=== PATIENT | male | born 1990 | race Hispanic/Latino ===

== ENCOUNTER 2020-11-03 10:23 | Emergency (ER) | payer SELFPAY ==
--- OUTSIDE RECORDS SUMMARY | 2020-11-03 10:26 | XMS REPORT | Continuity of Care Document ---
:1990 Author Organization [facility] t Address [address] [place] [address] Care Team Providers Name Role Phone Quin Bruce DOalex Vega Attending Clinician Payers Payer Name Policy Type Policy Number Effective Date Expiration Date S ource Problems This patient has no known problems. Allergies, Adverse Reactions, Alerts Allergy Allergy Status Severity Reaction(s) Onset Inactive Treating Comm ents Source Name Type Date Date Clinician No Known DA Active U 2019-0 [facility] All[facility]ie 7-30 Clear s 00:00: [place] 00 [facility] No Known DA Active U 2017- [facility] Allergie 2-24 Clear s 00:00: [place] 00 [facility] No Known DA Active U 2015-0 [facility] Allergie 4-10 Clear s 00:00: [place] 00 [facility] Medications This patient has no known medications. Procedures This patient has no known procedures. Encounters Start End Encounter Admission Attending Care Care Encounter Source Date/Time Date/Time Type Type Clinicians Facility Department ID 2019-10-09 2019-10-09 Emergency Bruce [facility] [id number] 21:14:06 22:36:00 [facility] [id number] [place] [id number] Butler [id number] [place] [address] ([facility]) 2019-03-28 2019-03-28 Emergency E [facility] [id number] [facility] 00:56:00 00:56:00 2019-01-29 2019-01-29 Emergency E [facility] [id number] [facility]BL 21:19:00 21:19:00 2019-01-20 2019-01-20 Emergency E [facility]SE [facility]SE [id number] MH 22:12:00 22:12:00 [facility] 2018-12-24 2018-12-24 Emergency E [facility]BL [facility]BL [id number] MHBL 23:23:00 23:23:00 Results This patient has no known results.
[2020-11-03] MEDS ORDERED: ONDANSETRON 4 MG/2 ML VIAL ONE (11:06)
[2020-11-03] MEDS ORDERED: NA CHLORIDE 0.9% 1,000 ML ONE (11:06)
[2020-11-03 11:10] LABS: Absolute Lymphocytes (CBC) 1.9 K/uL (0.7-4.9); Basophils % 0.8 % (0-1.3); Hematocrit 45.8 % (39.6-49.0); Lymphocytes % 22.9 % (15.3-44.8); MPV 9.1 fL (7.6-11.3); RBC Red Blood Cell Count 4.81 M/uL (4.33-5.43)
[2020-11-03] MEDS ORDERED: KETOROLAC 30 MG/ML INJ ONE (11:12)
[2020-11-03] MEDS ORDERED: MORPHINE 4 MG/ML SYR ONE (12:51)
[2020-11-03 12:52] LABS: ALT/SGPT 39 U/L (12-78); AST/SGOT 25 U/L (15-37); Albumin 3.3 g/dL (3.4-5.0); BUN Blood Urea Nitrogen 11 mg/dL (7-18); Bicarbonate 28 mmol/L (21-32); Bilirubin Direct < 0.1 mg/dL (0-0.2); Bilirubin Total 0.4 mg/dL (0.2-1.0); Glucose Level 150 mg/dL (74-106); Lipase 227 U/L (73-393); Protein, Total 7.4 g/dL (6.4-8.2); Sodium Level 142 mmol/L (136-145)
--- NOTE | 2020-11-03 13:50 | RAD REPORT ---
EXAM DESCRIPTION: CT - Abdomen Pelvis W Contrast - 11/03/2020 1:22 pm CLINICAL HISTORY: ABD PAIN COMPARISON: No comparisons TECHNIQUE: Biphasic, helical CT imaging of the abdomen and pelvis was performed following 100 ml non -ionic IV contrast. No oral contrast administered. All CT scans are performed using dose optimization technique as appropriate and may include automated exposure control or mA/KV adjustment according to patient size. FINDINGS: No suspicious findings in the lung bases. The liver, spleen, and pancreas show no suspicious findings. Gallbladder and biliary tree are also wi thout suspicious finding. Symmetric renal function is seen with no hydronephrosis or suspicious renal mass. No pyelonephritis o r acute parenchymal process. No bladder abnormalities. No adrenal abnormalities. Patel of the proximal stomach are prominent probably due to limited lumen content. Wall thickening of the duodenum and jejunum present with several loops of jejunum dilated. Distal jejunum and ileum are prominent but not dilated. Moderate stool volume fills the colon. There is no colon wall thickening or edema. Small bowel obstruction is not suspected. No free air, free fluid or inflammatory stranding . No hernia, mass or bulky lymphadenopathy. No suspicious bony findings. IMPRESSION: Circumferential wall thickening involves the duodenum and jejunum with several loops of jejunum dilated. Overall bowel pattern is prominent. Bowel obstruction is not suspected. This is most likely gastroenteritis.
--- NOTE | 2020-11-03 14:03 | ER ---
Nurse's Notes [facility] Name: Hector Cho Jr Age: 30 yrs Sex: Male : 1990 Arrival Date: 11/03/2020 Time: 10:31 Bed 7 Private MD: Diagnosis: Nausea with vomiting, unspecified;Other viral enteritis Presentation: 11/03 10:38 Chief complaint: Patient states: "I've been getting this rash all over me for the past ss month and then I started having belly pain and vomited like acid stuff and rumor has it the person I have been messing around with may have HIV.". Coronavirus screen: Client denies travel out of the [place] in the last 14 days. Ebola Screen: Patient denies exposure to infectious person. Patient denies travel to an Ebola-affected area in the 21 days before illness onset. Initial Sepsis Screen: Does the patient meet any 2 criteria? No. Patient's initial sepsis screen is negative. Does the patient have a suspected source of infection? No. Patient's initial sepsis screen is negative. Risk Assessment: Do you want to hurt yourself or someone else? Patient reports no desire to harm self or others. Onset of symptoms was September 2020. 10:38 Method Of Arrival: Ambulatory ss 10:38 Acuity: IRMA 3 ss Historical: - Allergies: 10:41 No Known Allergies; ss - PMHx: 10:41 PUD; ss - PSHx: 10:41 left wrist; ankle; ss - Immunization history:: Adult Immunizations up to date. - Social history:: Smoking status: Patient denies any tobacco usage or history of. Screenin:42 Abuse screen: Denies threats or abuse. Denies injuries from another. Nutritional sv screening: No deficits noted. Tuberculosis screening: No symptoms or risk factors identified. Fall Risk None identified. Assessment: 10:40 General: Appears in no apparent distress. Behavior is calm, cooperative. Pain: Pain hb currently is 8 out of 10 on a pain scale. Neuro: Level of Consciousness is awake, alert, obeys commands, Oriented to person, place, time, situation. Cardiovascular: Capillary refill < 3 seconds Patient's skin is warm and dry. Respiratory: Respiratory effort is even, unlabored, Respiratory pattern is regular, symmetrical. GI: Reports lower abdominal pain, upper abdominal pain, diarrhea, nausea, vomiting. : No signs and/or symptoms were reported regarding the genitourinary system. EENT: No signs and/or symptoms were reported regarding the EENT system. Derm: Skin is pink, warm \\T\\ dry. Musculoskeletal: No signs and/or symptoms reported regarding the musculoskeletal system. 10:50 Reassessment: Pt c/o abd pain, informed Dr Lal informed. Stated he would order some sv medication. 12:36 Reassessment: Pt c/o abdominal pain 05/28, Dr. Lal notified, VO received for hb Morphine 4mg IVP now, medicated as ordered. 13:15 Reassessment: Patient appears in no apparent distress at this time. Patient and/or hb family updated on plan of care and expected duration. Pain level reassessed. Patient is alert, oriented x 3, equal unlabored respirations, skin warm/dry/pink. 14:15 Reassessment: Patient appears in no apparent distress at this time. Patient and/or sv family updated on plan of care and expected duration. Pain level reassessed. Patient is alert, oriented x 3, equal unlabored respirations, skin warm/dry/pink. Vital Signs: 10:38 Pulse 72; Resp 15; Pulse Ox 99% on R/A; Weight 65.77 kg; Height 5 ft. 7 in. (170.18 ss cm); Pain 8/10; 10:42 BP 117 / 62; ss 11:38 BP 115 / 73; Pulse 62; Resp 16; Pulse Ox 99% ; sv 12:33 BP 129 / 77; Pulse 62; Resp 18; Pulse Ox 100% ; sv 13:14 BP 119 / 76; Pulse 58; Resp 16; Pulse Ox 98% ; sv 13:55 BP 114 / 78; Pulse 59; Resp 17; Pulse Ox 100% ; sv 10:38 Body Mass Index 22.71 (65.77 kg, 170.18 cm) ED Course: 10:31 Patient arrived in ED. am2 10:34 Doretha Pisano, [place] is Primary Nurse. sv 10:38 Jose Lal MD is Attending Physician. tw4 10:40 Triage completed. ss 10:41 Arm band placed on right wrist. ss 10:42 ED physician to see patient. sv 10:42 Patient has correct armband on for positive identification. Placed in gown. Bed in low sv position. Call light in reach. Pulse ox on. NIBP on. Door closed. Head of bed elevated. 10:50 Initial lab(s) drawn, by ED staff, sent to lab. Inserted saline lock: 20 gauge in left kj1 antecubital area, using aseptic technique. Blood collected. 13:21 CT Abd/Pelvis - IV Contrast Only In Process Unspecified. EDMS 14:16 No provider procedures requiring assistance completed. IV discontinued, intact, sv bleeding controlled, No redness/swelling at site. Pressure dressing applied. Administered Medications: 10:50 Drug: NS 0.9% 1000 ml Route: IV; Rate: 1 bolus; Site: left antecubital; sv 11:45 Follow up: Response: No adverse reaction; IV Status: Completed infusion; IV Intake: sv 1000ml 10:50 Drug: Zofran (Ondansetron) 4 mg Route: IVP; Site: left antecubital; sv 11:42 Follow up: Response: No adverse reaction sv 10:57 Drug: TORadol 30 mg Route: IVP; Site: left antecubital; sv 11:42 Follow up: Response: No adverse reaction sv 12:36 Drug: morphine 4 mg Route: IVP; Site: left antecubital; hb 13:00 Follow up: Response: No adverse reaction; Marked relief of symptoms; Pain is decreased; sv RASS: Alert and Calm (0) Intake: 11:45 IV: 1000ml; Total: 1000ml. sv Outcome: 14:02 Discharge ordered by MD. [email or web address] 14:16 Patient left the ED. sv 14:16 Discharged to home ambulatory. sv 14:16 Condition: stable 14:16 Discharge instructions given to patient, Instructed on discharge instructions, follow up and referral plans. medication usage, Demonstrated understanding of instructions, follow-up care, medications, Prescriptions given X 3. Signatures: Dispatcher [employer] EDDoretha Hollins RN RN sv Smirch, Shelby, RN RN ss Baxter, Heather, RN RN Anaya Mcgregor Terrence, MD MD twArleth Price kj1
--- NOTE | 2020-11-03 14:03 | EDPHYS ---
Physician Documentation [facility] Name: Hector Cho Jr Age: 30 yrs Sex: Male : 1990 Arrival Date: 11/03/2020 Time: 10:31 Bed 7 Private MD: ED Physician Jose Lal HPI: 11/03 11:05 This 30 yrs old Male presents to ER via Ambulatory with complaints of tw4 Abdominal Pain, Nausea/Vomiting, Skin Sore(s). 11:05 The patient presents to the emergency department with nausea, vomiting. Onset: The tw4 symptoms/episode began/occurred today. Possible causes: unknown. The symptoms are aggravated by nothing. The symptoms are alleviated by nothing. Severity of symptoms: At their worst the symptoms were moderate in the emergency department the symptoms are unchanged. The patient has not experienced similar symptoms in the past. Historical: - Allergies: 10:41 No Known Allergies; ss - PMHx: 10:41 PUD; ss - PSHx: 10:41 left wrist; ankle; ss - Immunization history:: Adult Immunizations up to date. - Social history:: Smoking status: Patient denies any tobacco usage or history of. ROS: 11:05 Constitutional: Negative for fever, chills, and weight loss, Eyes: Negative for injury, tw4 pain, redness, and discharge, Cardiovascular: Negative for chest pain, palpitations, and edema, Respiratory: Negative for shortness of breath, cough, wheezing, and pleuritic chest pain. 11:05 Back: Negative for injury and pain, MS/Extremity: Negative for injury and deformity, Skin: Negative for injury, rash, and discoloration, Neuro: Negative for headache, weakness, numbness, tingling, and seizure. 11:05 Abdomen/GI: Positive for abdominal pain, nausea and vomiting, nausea, vomiting, abdominal cramps, abdominal distension, Negative for nausea, vomiting, and diarrhea, diarrhea. 11:05 Skin: Positive for abrasion(s), lesions, Negative for abscesses, avulsion, diaphoresis, tw4 discoloration, ecchymosis. Exam: 11:05 Constitutional: This is a well developed, well nourished patient who is awake, alert, tw4 and in no acute distress. Head/Face: Normocephalic, atraumatic. Chest/axilla: Normal chest wall appearance and motion. Nontender with no deformity. No lesions are appreciated. Cardiovascular: Regular rate and rhythm with a normal S1 and S2. No gallops, murmurs, or rubs. Normal PMI, no JVD. No pulse deficits. Respiratory: Lungs have equal breath sounds bilaterally, clear to auscultation and percussion. No rales, rhonchi or wheezes noted. No increased work of breathing, no retractions or nasal flaring. Back: No spinal tenderness. No costovertebral tenderness. Full range of motion. MS/ Extremity: Pulses equal, no cyanosis. Neurovascular intact. Full, normal range of motion. Neuro: Awake and alert, GCS 15, oriented to person, place, time, and situation. Cranial nerves II-XII grossly intact. Motor strength 5/5 in all extremities. Sensory grossly intact. Cerebellar exam normal. Normal gait. 11:05 Abdomen/GI: Inspection: abdomen appears normal, Bowel sounds: diminished, Palpation: mild abdominal tenderness, in the umbilical area and left lower quadrant. Vital Signs: 10:38 Pulse 72; Resp 15; Pulse Ox 99% on R/A; Weight 65.77 kg; Height 5 ft. 7 in. (170.18 ss cm); Pain 8/10; 10:42 BP 117 / 62; ss 11:38 BP 115 / 73; Pulse 62; Resp 16; Pulse Ox 99% ; sv 12:33 BP 129 / 77; Pulse 62; Resp 18; Pulse Ox 100% ; sv 13:14 BP 119 / 76; Pulse 58; Resp 16; Pulse Ox 98% ; sv 13:55 BP 114 / 78; Pulse 59; Resp 17; Pulse Ox 100% ; sv 10:38 Body Mass Index 22.71 (65.77 kg, 170.18 cm) MDM: 10:38 Patient medically screened. tw 11:05 Data reviewed: vital signs, nurses notes. 11/03 10:40 Order name: Basic Metabolic Panel; Complete Time: 13:50 11/03 13:50 Interpretation: Normal except: CL 108; GLUC 150. 11/03 10:40 Order name: CBC with Diff; Complete Time: 13:50 11/03 13:51 Interpretation: Normal except: MCV 95.3. 11/03 10:40 Order name: Hepatic Function; Complete Time: 13:50 tw4 11/03 13:51 Interpretation: Normal except: ALB 3.3; GLOB 4.1; A/G 0.8. 11/03 10:40 Order name: Lipase; Complete Time: 13:50 tw4 11/03 13:51 Interpretation: Normal except: LIP 227. 4 11/03 12:48 Order name: CT Abd/Pelvis - IV Contrast Only; Complete Time: 13:57 tw4 11/03 10:40 Order name: IV Saline Lock; Complete Time: 10:57 tw4 11/03 10:40 Order name: Labs collected and sent; Complete Time: 10:57 tw4 Administered Medications: 10:50 Drug: NS 0.9% 1000 ml Route: IV; Rate: 1 bolus; Site: left antecubital; sv 11:45 Follow up: Response: No adverse reaction; IV Status: Completed infusion; IV Intake: sv 1000ml 10:50 Drug: Zofran (Ondansetron) 4 mg Route: IVP; Site: left antecubital; sv 11:42 Follow up: Response: No adverse reaction sv 10:57 Drug: TORadol 30 mg Route: IVP; Site: left antecubital; sv 11:42 Follow up: Response: No adverse reaction sv 12:36 Drug: morphine 4 mg Route: IVP; Site: left antecubital; hb 13:00 Follow up: Response: No adverse reaction; Marked relief of symptoms; Pain is decreased; sv RASS: Alert and Calm (0) Disposition: 11/03/20 14:02 Discharged to Home. Impression: Nausea with vomiting, unspecified, Other viral enteritis. - Condition is Stable. - Discharge Instructions: Nausea and Vomiting, Adult, Viral Gastroenteritis, Adult, Skin Yeast Infection. - Prescriptions for Bentyl 20 mg Oral Tablet - take 1 tablet by ORAL route every 6 hours As needed; 20 tablet. Zofran 4 mg Oral Tablet - take 1 tablet by ORAL route every 12 hours As needed; 6 tablet. Nystatin- Triamcinolone 100,000-0.1 unit/g-% Topical Cream - apply 1 application by TOPICAL route 2 times per day; 1 tube. Cleocin 150 mg Oral Capsule - take 1 capsule by ORAL route every 6 hours for 10 days; 40 capsule. - Medication Reconciliation Form, Thank You Letter, Antibiotic Education, Prescription Opioid Use form. - Follow up: Private Physician; When: Upon discharge from the Emergency Department; Reason: Recheck today's complaints, Continuance of care, Re-evaluation by your physician. - Problem is new. - Symptoms have improved. Signatures: Dispatcher [employer] Doretha Jacobo RN RN sv Smirch, Shelby, RN RN ss Baxter, Heather, RN RN hb Wadley, Terrence, MD MD tw4 Corrections: (The following items were deleted from the chart) 14:16 14:02 11/03/2020 14:02 Discharged to Home. Impression: Nausea with vomiting, sv unspecified; Other viral enteritis. Condition is Stable. Forms are Medication Reconciliation Form, Thank You Letter, Antibiotic Education, Prescription Opioid Use. Follow up: Private Physician; When: Upon discharge from the Emergency Department; Reason: Recheck today's complaints, Continuance of care, Re-evaluation by your physician. Problem is new. Symptoms have improved. tw4
[2020-11-03 14:38] VITALS: BP 114/78; O2SAT 100
== END 2020-11-03 14:16 | disposition home or self-care (01) ==
LOC: EDBD 10:23 → ER 10:23
DX: A08.39 Other viral enteritis (principal)
CPT/HCPCS: 36415; 74177; 80048; 80076; 83690; 85025; 96361; 96374; 96375; 99284; J2405; J7030; Q9967

== ENCOUNTER → 2023-09-09 | Emergency (ER) | payer SELFPAY ==
--- OUTSIDE RECORDS SUMMARY | 2023-09-09 15:10 | XMS REPORT | Continuity of Care Document ---
Author Name Unknown Address [address] 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 Name Role Phone PCP, PATIENT DOES NOT HAVE A Primary Care Physic sonia Unavailable SHAUNA CALI Attending Clinician Unavailable Shauna Cali MD Attending Clinician Thais Bruce DO, I Attending Clinician Payers Payer Name Policy Type Policy Number Effective Date Expirati on Date Source Problems Condition Name Condition Details Condition Category Status Onset Date Resolution Date Last Treatment Date Treating Clinician Comments Source No known active problems No known active problems Disease [facility] Allergies, Adverse Reactions, Alerts Allergy Name Allergy Type Status Severity Reaction(s) Onset Date Inactive Date Treating Clinician Comments Source No Known Allergie s DA Active U 03-17 00:00: 00 [facility] No Known Allergie s DA Active U 2017-08 2-24 00:00: 00 [facility] No Known Allergie s DA Active U 4 00:00: 00 [facility] NO KNOWN ALLERGIE S Drug Class Active [facility] Social History Social Habit Start Date Stop Date Quantity Comments Source History of tobacco use Cigarette Smoker [facility] Alcohol intake 2023-01-24 00:00:00 2023-01-24 00:00:00 Current drinker of alcohol (finding) [facility] Sex Ass[birth year] At 1990 00:00:00 1990 00:00:00 [facility] Smoking Status Start Date Stop Date Source Smokes tobacco daily 2023-01-24 00:00:00 [facility] Unknown if ever smoked [facility] Medications Ordered Medication Name Filled Medication Name Start Date Stop Date Current Medication? Ordering Clinician Indication Dosage Frequency Signature (SIG) Comments Components Source ondansetron (ZOFRAN (PF)) injection 4 mg 01-24 09:45: 00 01-24 09:38 :00 No 4mg 4 mg, Slow IV Push, ONCE, 1 dose, On Leida 01/24/23 at 0445, QUAN [facility] maalox:diph enhydrAMINE :lidocaine 2 % viscous 1:1:1 (FIRST-MOUT HWASH BLM) oral suspension 15 mL 01-24 09:00: 00 01-24 09:04 :00 No 15mL 15 mL, Oral, ONCE, 1 dose, On Leida 01/24/23 at 0400, Routine [facility] pantoprazol e (PROTONIX) 40 mg EC tablet 01-24 00:00: 00 Yes [id number] 40mg Take 1 tablet by mouth in the morning. [facility] dicyclomine 20 mg tablet 01-24 00:00: 00 Yes [id number] 20mg Take 1 tablet by mouth every 6 (six) hours as needed for Abdominal pain. [facility] HYDROcodone -acetaminop hen (NORCO 5) 5-325 mg tablet 1 tablet 10-10 05:00: 00 10-10 04:03 :00 No 1{tbl} 1 tablet, Oral, ONCE, 1 dose, 2/21/20 at 2300, QUAN [facility] naproxen (NAPROSYN) 500 mg tablet 10-09 00:00: 00 Yes [id number] 500mg Take 1 tablet by mouth 2 (two) times daily with meals. [facility] naproxen (NAPROSYN) 500 mg tablet 10-09 00:00: 00 Yes [id number] 500mg Take 1 tablet by mouth 2 (two) times daily with meals. [facility] clindamycin 150 mg capsule 10-09 00:00: 00 10-19 05:59 :00 No [id number] 450mg Take 3 capsules by mouth 3 (three) times daily for 10 days. [facility] Vital Signs Vital Name Observation Time Observation Value Comments S ource Systolic blood pressure 2023-01-24 08:36:00 137 mm[Hg] [facility] Diastolic blood pressure 2023-01-24 08:36:00 99 mm[Hg] [facility] Heart rate 2023-01-24 08:36:00 106 /min [facility] Body temperature 2023-01-24 08:36:00 37.5 Laine [facility] Respiratory rate 2023-01-24 08:36:00 20 /min [facility] Body height 2023-01-24 08:36:00 170.2 cm [facility] Body weight 2023-01-24 08:36:00 56.564 kg [facility] BMI 2023-01-24 08:36:00 19.53 kg/m2 [facility] Oxygen saturation in Arterial blood by Pulse oximetry 2023-01-24 08:36:00 98 /min [facility] Systolic blood pressure 2019-10-10 04:10:00 133 mm[Hg] [facility] Diastolic blood pressure 2019-10-10 04:10:00 87 mm[Hg] [facility] Heart rate 2019-10-10 04:10:00 79 /min [facility] Respiratory rate 2019-10-10 04:10:00 18 /min [facility] Oxygen saturation in Arterial blood by Pulse oximetry 2019-10-10 04:10:00 99 /min [facility] Body height 2019-10-10 03:11:00 170.2 cm [facility] Body weight 2019-10-10 03:11:00 66.679 kg [facility] BMI 2019-10-10 03:11:00 23.02 kg/m2 [facility] Body temperature 2019-10-10 03:11:00 36.56 Laine [facility] Systolic blood pressure 2019-10-10 04:10:00 133 mm[Hg] [facility] Diastolic blood pressure 2019-10-10 04:10:00 87 mm[Hg] [facility] Heart rate 2019-10-10 04:10:00 79 /min [facility] Respiratory rate 2019-10-10 04:10:00 18 /min [facility] Oxygen saturation in Arterial blood by Pulse oximetry 2019-10-10 04:10:00 99 /min [facility] Body height 2019-10-10 03:11:00 170.2 cm [facility] Body weight 2019-10-10 03:11:00 66.679 kg [facility] BMI 2019-10-10 03:11:00 23.02 kg/m2 [facility] Body temperature 2019-10-10 03:11:00 36.56 Laine [facility] Procedures Procedure Date / Time Performed Performing Clinicia n Source COMP. METABOLIC PANEL (99822) 2023-01-24 08:48:00 Shauna Cali [facility] CBC WITH DIFF 2023-01-24 08:48:00 Shauna Cali [facility] URINALYSIS 2023-01-24 08:48:00 Shauna Cali [facility] CONSENT/REFUSAL FOR DIAGNOSIS AND TREATMENT 2023-01-24 08:31:49 Doctor Unassigned, [place] [facility] NOTICE OF PRIVACY PRACTICES 2023-01-24 08:31:16 Doctor Unassigned, [place] [facility] Encounters Start Date/Time End Date/Time Encounter Type Admission Type Attending Clinicians Care Facility Care Department Encounter ID Source 2023-01-24 03:40:00 2023-01-24 05:45:00 Emergency X SHAUNA CALI [facility] ERT [id number] [facility] 2023-01-24 03:40:00 2023-01-24 05:45:00 Emergency Shauna Cali [facility] [id number] [facility] 2019-10-09 21:14:06 2019-10-09 22:36:00 Emergency [facility] ([facility] [id number] 2019-10-09 21:14:06 2019-10-09 22:36:00 Emergency [facility] ([facility] [id number] [id number] [facility] Results Test Description Test Time Test Comments Results Result Co mments Source [facility] WITH [id number] 09:07:15* Test Item Value Reference Range Interpretation Comme nts WBC (test code = 6690-2) 9.30 See_Comment [Automated Sokratia WHOOP] The system which generated this result transmitted reference range: 4.20 - 10.70 10*3/?L. The reference range was not used to interpret this result as normal/abnormal. RBC (test code = 789-8) 4.91 See_Comment [Automated Sokratia ge] The system which generated this result transmitted reference range: 4.26 - 5.52 10*6/?L. The reference range was not used to interpret this result as normal/abnormal. HGB (test code = 718-7) 15.3 g/dL 12.2-16.4 HCT (test code = 4544-3) 43.6 % 38.4-49.3 MCV (test code = 787-2) 88.8 fL 81.7-95.6 MCH (test code = 785-6) 31.2 pg 26.1-32.7 MCHC (test code = 786-4) 35.1 g/dL 31.2-35.0 H RDW-SD (test code = 74383-4) 43.8 fL 38.5-51.6 RDW-CV (test code = 788-0) 13.6 % 12.1-15.4 PLT (test code = 777-3) 340 See_Comment H [Automated messa ge] The system which generated this result transmitted reference range: 150 - 328 10*3/?L. The reference range was not used to interpret this result as normal/abnormal. MPV (test code = 08874-5) 10.5 fL 9.8-13.0 NRBC/100 WBC (test code = 0176308452) 0.0 See_Comment [Automated me ssage] The system which generated this result transmitted reference range: 0.0 - 10.0 /100 WBCs. The reference range was not used to interpret this result as normal/abnormal. NRBC x10^3 (test code = 4076482178) See_Comment [Automated messa ge] The system which generated this result transmitted reference range: 10*3/?L. The reference range was not used to interpret this result as normal/abnormal. GRAN MAT (NEUT) % (test code = 770-8) 55.3 % IMM GRAN % (test code = 3799064147) 0.20 % LYMPH % (test code = 736-9) 27.4 % MONO % (test code = 5905-5) 14.2 % EOS % (test code = 713-8) 2.0 % BASO % (test code = 706-2) 0.9 % GRAN MAT x10^3(ANC) (test code = 2036687993) 5.14 10*3/uL 1.99-6.95 IMM GRAN x10^3 (test code = 4760118845) 0.00-0.06 LYMPH x10^3 (test code = 731-0) 2.55 10*3/uL 1.09-3.23 MONO x10^3 (test code = 742-7) 1.32 10*3/uL 0.36-1.02 H EOS x10^3 (test code = 711-2) 0.19 10*3/uL 0.06-0.53 BASO x10^3 (test code = 704-7) 0.08 10*3/uL 0.01-0.09 Lab Interpretation (test code = 26473-1) Abnormal [facility] Notes Date/Time Note Provider Source 2019-03-17 23:16:00 [id number] [id number]/[id number]:1 6:00 [facility] ([facility])EMERGENCY PROVIDER REPORTREPORT#:[id number] REPORT STATUS: SignedDATE:03/17/19 TIME: 2315 PATIENT: CORA KC UNIT #: [id number]#: [id number] ROOM/BED:AGE: 28 SEX: M PCP PHYS: Romaine Pavon MDSERVICE AUTHOR: Clem Mazariegos MD * ALL edits or amendments must be made on the electronic/computer document * HPI-Rash/Abscess/Cellulitis GeneralConfirmed Patient YesInitial Greet Date/Time 03/17/19 2314PCPPCP: Romaine Pavon MD PresentationChief Complaint Tender/swollen areaHx Obtained From PatientOnset Occurred One week agoSymptom Duration Since onsetProgression since Onset Gradually worseningLocation Lower extremity (R)Quality PainfulAssociated withDenies: Fever, Joint pain. Free Text HPI NotesFree Text HPI Notes28 y/o M w/no significant PMHx presents to the ED with c/o a tender/swollen areato posterior aspect of right lower leg that he thinks may be an abscess. The ptstates that sx began 1 week ago and he notes that sx progression has been constant in nature. States it started as a small pimple looking area. Also noted, the pt has been taking OTC ibuprofen for pain management. Portions of this section were scribed by Zahra Oneal on 03/17/19 at 2346 Review of Systems Focused Review of SystemsConstitutionalDenies: Chills, Fever, Lethargy. GIDenies: Nausea, Vomiting. MusculoskeletalReports: Extremity pain, Extremity swelling. SkinReports: Erythema, Swelling, Ulceration. Additional Review of SystemsHematologicDenies: Bleeding, Bruising. Portions of this section were scribed by Zahra Oneal on 03/17/19 at 2316 Past Medical History - AdultStated Complaint PAINFUL ABSCESS ON RIGHT LEG FOR ONE WEEKAllergiesCoded Allergies:No Known Allergies (03/17/19) Home MedicationsReported MedicationsNo Known Home Medications Discontinued Reported MedicationsALPRAZolam (XANAX) 2 MG PO PRN PRN ANXIETY Additional Medical Historysocial anxiety, stomach ulcersAdditional Surgical HistoryAnkle surgery, wrist surgeryAlcohol Use Denies EtOH useDrug Use Marijuana (occasional)Smoking status for patients 13 years old or older: Current every day smokerOther Social History Local resident Portions of this section were scribed by Zahra Oneal on 03/17/19 at 2316 Physical Exam Vital SignsVital SignsFirst Documented: Result Date Time Pulse Ox 99 03/17 2313 B/P 146/96 03/17 2313 B/P Mean 112 03/17 2313 O2 Delivery Room air 03/17 2313 Temp 98.4 03/17 2313 Pulse 60 03/17 2313 Resp 16 03/17 2313 Last Documented: Result Date Time Pulse Ox 99 03/17 2313 B/P 146/96 03/17 2313 B/P Mean 112 03/17 2313 O2 Delivery Room air 03/17 2313 Temp 98.4 03/17 2313 Pulse 60 03/17 2313 Resp 16 03/17 2313 Review of Vital Signs Reviewed Focused PEGeneral/Const General/Const Awake, Alert, Well developedMS Lower Extrem Text/Dict Notesarea of ulceration with surrounding erythema and induration on posterior right lower legSkin Skin Warm, Dry Text/Dict Notes1.5 cm area of ulceration noted to the posterior aspect of L leg w/surrounding erythema and indurationNeurologic Neurologic Oriented X3, No motor deficits Portions of this section were scribed by Zahra Oneal on 03/17/19 at 2346 Re-Evaluation MDM ED CourseMedication(s) OrderedMedication(s) Ordered:Anti-Infective Agents Sig/Trinity Start time Last Medication Dose Route Stop Time Status Admin Clindamycin HCl 300 MG X1ED STA 03/17 2318 DC 03/17 PO 03/17 2319 2323 Central Nervous System Agents Sig/Trinity Start time Last Medication Dose Route Stop Time Status Admin Ibuprofen 600 MG X1ED STA 03/179 DC 03/17 PO 03/17 2320 2323 Portions of this section were scribed by Zahra Oneal on 03/17/19 at 2343 Patient Discharge Departure Vital Signs/ConditionVital SignsFirst Documented: Result Date Time Pulse Ox 99 03/17 2313 B/P 146/96 03/17 2313 B/P Mean 112 03/17 2313 O2 Delivery Room air 03/17 2313 Temp 98.4 03/17 2313 Pulse 60 03/17 2313 Resp 16 03/17 2313 Last Documented: Result Date Time Pulse Ox 99 03/17 2313 B/P 146/96 03/17 231 B/P Mean 112 03/17 2313 O2 Delivery Room air 03/17 2313 Temp 98.4 03/17 2313 Pulse 60 03/17 2313 Resp 16 03/17 2313 All vital signs available at the time of this entry have been reviewed. Condition Stable Clinical ImpressionClinical ImpressionPrimary Impression: Cellulitis of right lower leg Disposition DecisionDischarge )( Discharged to Home Yes )( Time 2320 )( Date 03/17/19 Discharge/Care PlanCounseled Regarding Diagnosis, Prescriptions, Need for follow-up, When to returnto EDPrescriptionsclindamycinPrescriptions Reviewed Risks, Benefits, Alternative treatment Quality MeasuresSmoking Cessation Screened, tobacco user, Tobacco cess intervention Supervising Physician Note Scribe StatementZahra Oneal, 03/17/19 2320, scribing for and in the presence of Dr. Mazariegos.Signed By: Zahra Oneal, 03/17/19 2320 Provider Scribed StatementI personally performed the services described in this documentation and reviewedthe documentation that was dictated to the scribe(s) in my presence, and it accurately records my words and actions. Clem Mazariegos, 03/17/19 Portions of this section were scribed by Zahra Oneal on 03/17/19 at 2346 at 2356RPT #:[id number] OF REPORTEDEmerchicot memorial medical center department [id number]:16:00G.[id number] ilable for patient [id number]:56:45 [facility]
[2023-09-09 16:17] LABS: Absolute Lymphocytes (CBC) 1.4 K/uL (0.7-4.9); Hematocrit 43.7 % (39.6-49.0); Lymphocytes % 19.1 % (15.3-44.8); MCV 95.5 fL (80-100); MPV 8.1 fL (7.6-11.3); Platelets 304 thou/uL (152-406); RBC Red Blood Cell Count 4.57 M/uL (4.33-5.43)
[2023-09-09 16:35] LABS: Bilirubin Total 0.5 mg/dL (0.2-1.0); Protein, Total 8.2 g/dL (6.4-8.2)
[2023-09-09 16:37] LABS: Specific Gravity 1.026 (1.005-1.030); Urine Bacteria None Seen /HPF (<20); Urine Bilirubin NEGATIVE (Negative); Urine Blood Trace (Negative); Urine Clarity Clear (Clear); Urine Color Yellow (Yellow); Urine Glucose NEGATIVE (Negative); Urine Mucus Slight /HPF (None Seen); Urine Protein NEGATIVE (Negative); Urine Urobilinogen Normal (Normal); Urine pH 5.5 (5.0-7.0)
--- NOTE | 2023-09-09 17:46 | RAD REPORT ---
EXAM DESCRIPTION: CT - Abdomen Pelvis W Contrast - 09/09/2023 5:08 pm CLINICAL HISTORY: and rectal bleeding;Abd pain COMPARISON: Abdomen Pelvis W Contrast dated 11/03/2020 TECHNIQUE: Thin cut axial CT imaging of the abdomen and pelvis was performed following intravenous a dministration of 100 mL Isovue 300. Multiplanar reformats were generated and reviewed. All CT scans are performed using dose optimization technique as appropriate and may include automated exposure control or mA/KV adjustment according to patient size. FINDINGS: No suspicious findings in the lung bases. The liver, spleen, adrenal glands, and pancreas show no suspicious findings. Gallbladder and biliary tree are also without suspicious finding. Symmetric renal function is seen with no hydronephrosis or suspicious renal mass. No dilated bowel loops or bowel wall thickening. No free air, free fluid or inflammatory stranding. N o hernia, mass or bulky lymphadenopathy. The urinary bladder is without significant finding. No suspicious bony findings. IMPRESSION: No acute intra-abdominal process.
--- NOTE | 2023-09-09 17:57 | ER ---
Nurse's Notes [facility] Name: Hector Cho Jr Age: 33 yrs Sex: Male : 1990 Arrival Date: 09/09/2023 Time: 15:06 Bed 13 Private MD: Diagnosis: Bright Red Blood Per Rectum Presentation: 09/09 15:14 Chief complaint: Patient states: Abdominal pain since this morning. 1 episode of bloody ld1 stool. Coronavirus screen: At this time, the client does not indicate any symptoms associated with coronavirus-19. Ebola Screen: No symptoms or risks identified at this time. Initial Sepsis Screen: Does the patient meet any 2 criteria? No. Patient's initial sepsis screen is negative. Does the patient have a suspected source of infection? No. Patient's initial sepsis screen is negative. Risk Assessment: Do you want to hurt yourself or someone else? Patient reports no desire to harm self or others. Onset of symptoms was September 09, 2023. 15:14 Method Of Arrival: Ambulatory ld1 15:14 Acuity: IRMA 3 ld1 Triage Assessment: 15:16 General: Appears in no apparent distress. comfortable, Behavior is calm, cooperative, ld1 appropriate for age. Pain: Denies pain. EENT: No signs and/or symptoms were reported regarding the EENT system. Neuro: Level of Consciousness is awake, alert, obeys commands, Oriented to person, place, time, situation. Cardiovascular: Capillary refill < 3 seconds Patient's skin is warm and dry. Respiratory: Airway is patent Respiratory effort is even, unlabored. GI: Abdomen is flat, non-distended, Reports bloody stool. : No signs and/or symptoms were reported regarding the genitourinary system. Derm: No signs and/or symptoms reported regarding the dermatologic system. Musculoskeletal: No signs and/or symptoms reported regarding the musculoskeletal system. Historical: - Allergies: 15:16 No Known Allergies; ld1 - PMHx: 15:16 PUD; ld1 - PSHx: 15:16 None; ld1 - Immunization history:: Adult Immunizations up to date. - Social history:: Smoking status: Patient denies any tobacco usage or history of. Patient uses alcohol, on a daily basis. Screenin:07 [facility] ED Fall Risk Assessment (Adult) Score/Fall Risk Level 0 - 2 = Low Risk. Abuse iw screen: Denies threats or abuse. Denies injuries from another. Nutritional screening: No deficits noted. Tuberculosis screening: No symptoms or risk factors identified. Assessment: 18:07 Reassessment: Patient appears in no apparent distress at this time. Patient and/or iw family updated on plan of care and expected duration. Pain level reassessed. Patient is alert, oriented x 3, equal unlabored respirations, skin warm/dry/pink. Vital Signs: 15:14 Pulse 83; Resp 18; Temp 98.4(TE); Pulse Ox 96% on R/A; Pain 0/10; ld1 15:14 BP 163 / 99; Height 5 ft. 7 in. ; ld1 15:16 Weight 65.77 kg; ld1 15:14 Pain Scale: Adult ld1 ED Course: 15:07 Patient arrived in ED. rg4 15:08 Carson Cardenas MD is Attending Physician. ec2 15:16 Triage completed. ld1 15:16 Arm band placed on right wrist. ld1 16:11 Initial lab(s) drawn, by nd, sent to lab. Urine collected: clean catch specimen, drake ap3 colored. Inserted saline lock: 20 gauge in left antecubital area, using aseptic technique. Blood collected. 16:11 CMP Sent. ap3 16:11 CBC with Diff Sent. ap3 16:11 UAM Sent. ap3 17:10 CT Abd/Pelvis - IV Contrast Only In Process Unspecified. 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 kc6 17:56 Wesley Gray MD is Referral Physician. ec2 18:06 Cate Huerta, [place] is Primary Nurse. iw Administered Medications: No medications were administered Medication: 18:07 VIS not applicable for this client. iw Outcome: 17:56 Discharge ordered by . ec2 18:06 Discharged to home ambulatory, iw 18:06 Condition: good 18:06 Discharge instructions given to patient, Instructed on discharge instructions, follow up and referral plans. Demonstrated understanding of instructions, follow-up care, 18:07 Patient left the ED. iw Signatures: Dispatcher [employer] EDMS Cate Huerta, [place]INA RN iw Tammy Zazueta rg4 Anaya Greer RN RN ap3 Ban Tang RN RN ld1 Delores Miranda RN RN kc6 Carson Cardenas, MD ec2
--- NOTE | 2023-09-09 17:57 | EDPHYS ---
Physician Documentation [facility] Name: Hector Cho Jr Age: 33 yrs Sex: Male : 1990 Arrival Date: 09/09/2023 Time: 15:06 Bed 13 Private MD: ED Physician Carson Cardenas HPI: 09/09 15:19 This 33 yrs old Male presents to ER via Ambulatory with complaints of ec2 Abdominal Pain, Low Back Pain, Bloody Stools. 15:19 Patient arrives today for rectal bleeding. Patient reports he is having lower abdominal ec2 pain. States that he has no previous similar problems, denies any urinary complaints. Denies any history of IBD, denies any new foods. Reports history of gastritis.. Historical: - Allergies: 15:16 No Known Allergies; ld1 - PMHx: 15:16 PUD; ld1 - PSHx: 15:16 None; ld1 - Immunization history:: Adult Immunizations up to date. - Social history:: Smoking status: Patient denies any tobacco usage or history of. Patient uses alcohol, on a daily basis. ROS: 15:19 Constitutional: as per hpi ec2 Exam: 15:19 Constitutional: GEN: NAD Head: atraumatic Eyes: EOMI Ears: External ears are ec2 normal. CV: regular rate LUNGS: no respiratory distress ABD: non-distended, soft, tender in the epigastrium and left lower quadrant. SKIN: no evidence of rashes MSK: no evidence of trauma NEURO: moves all extremities equally Vital Signs: 15:14 Pulse 83; Resp 18; Temp 98.4(TE); Pulse Ox 96% on R/A; Pain 0/10; ld1 15:14 BP 163 / 99; Height 5 ft. 7 in. ; ld1 15:16 Weight 65.77 kg; ld1 15:14 Pain Scale: Adult ld1 MDM: 15:12 Patient medically screened. ec2 15:19 Data reviewed: vital signs. ED course: Arrives today for abdominal pain and rectal ec2 bleeding. Examination remarkable for abdominal findings as noted above. Will obtain lab work, CT imaging. Currently considering gastroenteritis, IBD, low suspicion for upper GI bleed.. 16:56 ED course: CBC is reassuring, metabolic profile nonactionable, urine is noninfectious ec2 appearing. Pending CT imaging. . 17:55 ED course: CT abdomen pelvis shows no acute intra-abdominal process. I did perform a ec2 rectal examination performed under nursing supervision, CAROLINA Bhatti, no obvious fissures or hemorrhoids present. Will discharge home and have him follow-up with a GI doctor. Return precautions given.. 09/09 15:19 Order name: CBC with Diff; Complete Time: 16:56 ec2 09/09 15:19 Order name: CMP; Complete Time: 16:56 ec2 09/09 15:19 Order name: UAM; Complete Time: 16:56 ec2 09/09 15:19 Order name: CT Abd/Pelvis - IV Contrast Only; Complete Time: 17:51 ec2 09/09 15:19 Order name: IV Saline Lock; Complete Time: 16:11 ec2 09/09 15:19 Order name: Labs collected and sent; Complete Time: 16:11 ec2 Administered Medications: No medications were administered Disposition Summary: 09/09/23 17:56 Discharge Ordered Notes: Location: Home ec2 Condition: Stable ec2 Diagnosis - Bright Red Blood Per Rectum ec2 Followup: ec2 - With: Private Physician - When: - Reason: Recheck today's complaints Followup: ec2 - With: Wesley Gray MD - When: - Reason: Recheck today's complaints Discharge Instructions: - Discharge Summary Sheet ec2 - Rectal Bleeding, [id number] ec2 Forms: - Work release form iw - Medication Reconciliation Form ec2 - Thank You Letter ec2 - Antibiotic Education ec2 - Prescription Opioid Use ec2 - Patient Portal Instructions ec2 - Leadership Thank You Letter ec2 Signatures: Dispatcher [employer] Ban Nicholson RN RN ld1 Carson Cardenas MD MD ec2 Corrections: (The following items were deleted from the chart) 15:21 15:21 Patient medically screened. ec2 ec2
[2023-09-09 20:44] VITALS: BP 163/99; TEMP 98.4; O2SAT 96
== END ==
LOC: ER 15:06
DX: K62.5 Hemorrhage of anus and rectum (principal); R10.9 Unspecified abdominal pain; M54.50 Low back pain, unspecified
CPT/HCPCS: 36415; 74177; 80053; 81001; 85025; 99283; Q9967